=== PATIENT | female | born 1940 | race Two or more races ===

== ENCOUNTER 2017-09-14 10:54 | Emergency (ER) | payer MEDICAID, MEDICARE ==
[~2017-09-14] VITALS: Ht 170.2 cm; Wt 65.0 kg
[2017-09-14] MEDS ORDERED: PLEASE ENTER ALLERGIES MC SCH ×2 (11:30)
[2017-09-14] MEDS ORDERED: SODIUM CHLORIDE FLUSH 10ML SYR IVF ONE ×2 (11:30→15:00)
[2017-09-14] MEDS ORDERED: PLEASE ENTER HEIGHT AND WEIGHT MC SCH (11:30)
[2017-09-14 11:53] LABS: HEMATOCRIT 37.2 % (34.6-47.8); HEMOGLOBIN 12.3 g/dL (11.7-16.4); WHITE BLOOD COUNT 7.7 x10^3/uL (3.4-10)
[2017-09-14 12:11] LABS: BLOOD UREA NITROGEN 12 mg/dL (7-18)
[2017-09-14 12:16] LABS: ASPARTATE AMINO TRANSFERASE 12 U/L (15-37)
[2017-09-14 12:17] LABS: IS PT STATUS REG ER OR PRE ER? YES
[2017-09-14 13:07] VITALS: BP 116/60
[2017-09-14] MEDS ORDERED: OMNIPAQUE 350 MG/ML, 100ML BOTTLE ONE (14:12)
[2017-09-14] MEDS ORDERED: SODIUM CHLORIDE 0.9% 1,000 ML IV ONE (14:56)
[2017-09-14] MEDS ORDERED: SODIUM CHLORIDE 0.9% 1,000ML IVBOLUS ONE (15:00)
[2017-09-14] MEDS ORDERED: INSULIN REGULAR 100 UNITS/ML, 3ML VIAL IV ONE (15:00)
== END 2017-09-14 15:26 | disposition home or self-care (01) ==
LOC: ED 14:32
DX: R11.10 Vomiting, unspecified (principal); R93.8 Abnormal findings on diagnostic imaging of other specified body structures; E11.9 Type 2 diabetes mellitus without complications; E78.5 Hyperlipidemia, unspecified; I10 Essential (primary) hypertension; Z98.890 Other specified postprocedural states
CPT/HCPCS: 36415; 71010; 71275; 80053; 84484; 85025; 85379; 93005; 99285; Q9967

== ENCOUNTER → 2018-06-21 | Outpatient (CLI) | payer MEDICARE, MEDICAID | END | disposition home or self-care (01) | LOC: LAB 11:42 | PROVIDERS: ATTEND Internal Medicine Geriatric Medicine | DX: M19.071 Primary osteoarthritis, right ankle and foot (principal); M77.31 Calcaneal spur, right foot; R35.1 Nocturia; R53.83 Other fatigue ==